=== PATIENT | male | born 1990 | race African-American/Black ===

== ENCOUNTER 2022-02-14 11:57 | Emergency (ER) | payer MEDICAID ==
[~2022-02-14] VITALS: Ht 177.8 cm; Wt 75.0 kg
[2022-02-14 12:25] VITALS: BP 147/95
[2022-02-14] MEDS ORDERED: HYDROCODONE/ACETAMINOPHEN 5-325 MG TABLET PO ONE (12:30)
[2022-02-14] MEDS ORDERED: PENICILLIN V POTASSIUM 500 MG TABLET PO ONE (12:30)
== END 2022-02-14 13:04 | disposition home or self-care (01) ==
LOC: EMS 12:03
DX: K02.9 Dental caries, unspecified (principal); K08.89 Other specified disorders of teeth and supporting structures; F20.9 Schizophrenia, unspecified; F31.9 Bipolar disorder, unspecified; F10.20 Alcohol dependence, uncomplicated; F17.210 Nicotine dependence, cigarettes, uncomplicated; I10 Essential (primary) hypertension
CPT/HCPCS: 99283